=== PATIENT | male | born 1995 ===

== ENCOUNTER 2021-08-16 08:58 | Emergency (ER) | payer OTHER ==
[~2021-08-16] VITALS: Ht 170.2 cm; Wt 55.0 kg
[2021-08-16 09:10] VITALS: BP 116/84
[2021-08-16 09:30] VITALS: BP 134/71
[2021-08-16 09:49] LABS: HEMATOCRIT 40.3 % (39.0-50.0); HEMOGLOBIN 13.7 g/dl (14.0-18.0); IMMATURE GRANULOCYTES 0.2 % (0.0-5.0); MEAN CELL VOLUME 87.8 fL CALC (80.0-100.0); MEAN CORPUSCULAR HGB 29.8 pG CALC (26.0-32.0); NEUT# 2.94 thou/uL (1.82-7.42); RED BLOOD COUNT 4.59 mill/uL (4.70-6.10); RED CELL DISTRI WIDTH 11.3 % (11.5-15.5)
[2021-08-16 09:50] LABS: URINE BILIRUBIN - DIPSTICK NEGATIVE (NEGATIVE); URINE BLOOD DIPSTICK NEGATIVE (NEGATIVE); URINE COLOR YELLOW; URINE GLUCOSE - DIPSTICK NEGATIVE (NEGATIVE); URINE KETONE NEGATIVE (NEGATIVE); URINE LEUK ESTERASE NEGATIVE (NEGATIVE); URINE PH 7.5 (4.5-8.0); URINE PROTEIN - DIPSTICK NEGATIVE (NEG-TRACE); URINE SPECIFIC GRAVITY <=1.005; URINE UROBILINOGEN - DIPSTICK 0.2 E.U./dL (0.2)
[2021-08-16 09:51] LABS: URINE NITRITE - DIPSTICK NEGATIVE (Negative)
[2021-08-16 10:00] VITALS: BP 113/85
[2021-08-16 10:10] LABS: ALBUMIN 3.6 g/dL (3.2-5.0); ALKALINE PHOSPHATASE 49 u/l (38-126); AMYLASE 86 u/l (30-110); ANION GAP 10 (6-22 (CALC)); BUN 11 mg/dL (9-20); BUN/CREATININE RATIO 13 (12-20 (CALC)); CARBON DIOXIDE 29 mmol/l (22-30); CHLORIDE 103 mmol/l (95-108); CREATININE 0.8 mg/dL (0.7-1.3); GFR FOR AFR.AMER. > 60 ML/MIN (>=60 (CALC)); GFR OTHER RACES > 60 ML/MIN (>=60 (CALC)); LIPASE 28 u/l (23-300); POTASSIUM 3.4 mmol/l (3.5-5.1); SGOT/AST 15 u/l (17-59); SODIUM 138 mmol/l (137-146); TOTAL PROTEIN 6.2 g/dL (6.3-8.2)
[2021-08-16 10:30] VITALS: BP 117/80
[2021-08-16] MEDS ORDERED: ZPAK PO (10:42)
[2021-08-16] MEDS ORDERED: IBUPROFEN600 MG PO (10:42)
[2021-08-16 10:51] VITALS: BP 117/80
== END 2021-08-16 11:05 | disposition home or self-care (01) | DRG 153 ==
LOC: ED 08:58
DX: J06.9 Acute upper respiratory infection, unspecified (principal); R07.81 Pleurodynia; Z20.822 Contact with and (suspected) exposure to COVID-19